=== PATIENT | female | born 2000 | race Caucasian/White ===

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

== ENCOUNTER 2024-07-12 03:32 | Inpatient (IN) | payer OTHER ==
[~2024-07-12] VITALS: Ht 162.6 cm; Wt 151.4 kg
[2024-07-12] VITALS (36 sets, daily range): BP systolic 108–181; BP diastolic 55–113
[2024-07-12] MEDS ORDERED: Oxytocin 10 Unit / ML Vial IM PRN (04:05)
[2024-07-12] MEDS ORDERED: ePHEDrine Sulfate 50 MG/ML 1ML Injection XX PRN (04:05)
[2024-07-12] MEDS ORDERED: Ondansetron HCl 2 MG / ML 2ML Vial IV PRN (04:05)
[2024-07-12] MEDS ORDERED: Methylergonovine Maleate 0.2MG / ML 1ML Amp IM PRN ×2 (04:05→21:05)
[2024-07-12] MEDS ORDERED: Misoprostol 200 MCG Tab BC PRN (04:05)
[2024-07-12] MEDS ORDERED: FentaNYL 2mcg/ml-Bup 0.1% Epd 250 ML EPI PRN (04:05)
[2024-07-12] MEDS ORDERED: Carboprost Tromethamine 250 MCG/ML 1ML Amp IM PRN (04:05)
[2024-07-12] MEDS ORDERED: OXYTOCIN/RINGER'S LACTATE 500 ML IV PRN (04:05)
[2024-07-12] MEDS ORDERED: Calcium Carbonate 500 MG Tab Chew PO PRN (04:05)
[2024-07-12] MEDS ORDERED: Misoprostol 200 MCG Tab PR PRN ×2 (04:05→21:05)
[2024-07-12] MEDS ORDERED: Acetaminophen 500 MG Tab PO PRN (04:05)
[2024-07-12] MEDS ORDERED: Lactated Ringer's 1,000 ML IV PRN ×3 (04:05)
[2024-07-12] MEDS ORDERED: Tranexamic Acid 100 ML IV PRN (04:10)
[2024-07-12] MEDS ORDERED: Penicillin G Potassium 5,000,000 UNITS in NS 250 ML IV ONE (04:25)
[2024-07-12 04:43] LABS: BASOPHILS ABSOLUTE AUTO 0.01 K/mm3 (0.00-0.23); BASOPHILS PERCENT AUTO 0 % (0-2); EOSINOPHILS ABSOLUTE AUTO 0.04 K/mm3 (0.00-0.68); EOSINOPHILS PERCENT AUTO 1 % (0-6); Hematocrit 35.5 % (33.0-51.0); IMMATURE GRAN ABSOLUTE AUTO 0.11 K/mm3 (0.00-0.10); IMMATURE GRAN PERCENT AUTO 1 % (0-1); LYMPHOCYTES ABSOLUTE AUTO 1.04 K/mm3 (0.84-5.20); LYMPHOCYTES PERCENT AUTO 13 % (21-46); MONOCYTES ABSOLUTE AUTO 0.56 K/mm3 (0.16-1.47); MONOCYTES PERCENT AUTO 7 % (4-13); Mean Corpuscular HGB 26.5 pg (26.0-34.0); Mean Corpuscular HGB Conc 33.8 g/dL (31.5-36.5); Mean Corpuscular Volume 79 fL (80-100); Mean Platelet Volume 11.2 fL (9.1-12.4); NEUTROPHILS ABSOLUTE AUTO 6.51 K/mm3 (1.96-9.15); NEUTROPHILS PERCENT AUTO 79 % (41-73); Platelet Count 183 K/mm3 (150-400); RDW Coefficient Variation 15.3 % (11.7-14.2); RDW Standard Deviation 43.5 fL (35.1-46.3); Red Blood Cell Count 4.52 M/mm3 (3.80-5.20); White Blood Cell Count 8.27 K/mm3 (4.00-11.30)
[2024-07-12] MEDS ORDERED: FentaNYL Citrate 50 MCG/ML 2 ML Injection IV PRN (05:30)
[2024-07-12] MEDS ORDERED: Penicillin G Potassium 2,500,000 UNITS in Dextrose 5% 100 ML IV SCH ×2 (09:00→10:00)
[2024-07-12] MEDS ORDERED: OXYTOCIN/RINGER'S LACTATE 500 ML IV SCH ×2 (11:10→21:00)
[2024-07-12] MEDS ORDERED: FentaNYL Citrate 50 MCG/ML 2 ML Injection ONE (17:55)
[2024-07-12] MEDS ORDERED: Witch Hazel/Glycerin PADS TOP PRN (21:00)
[2024-07-12] MEDS ORDERED: Benzocaine Topical Anesthetic Spray 60GM TOP PRN (21:00)
[2024-07-12] MEDS ORDERED: Lactated Ringer's 1,000 ML IV SCH (21:05)
[2024-07-12] MEDS ORDERED: Acetaminophen 325 MG TABLET PO PRN (21:05)
[2024-07-12] MEDS ORDERED: FLU VACC TS2024-25(6MOS UP)/PF 45 MCG/0.5 ML SYRINGE IM ONE (21:05)
[2024-07-12] MEDS ORDERED: Ibuprofen 400 MG Tab PO PRN (21:05)
[2024-07-13] VITALS (7 sets, daily range): BP systolic 119–140; BP diastolic 61–70
[2024-07-13] MEDS ORDERED: Ketorolac Tromethamine 30mg Vial IV SCH
[2024-07-13] MEDS ORDERED: Lanolin Cream TOP PRN (04:00)
[2024-07-13 06:44] LABS: BASOPHILS ABSOLUTE AUTO 0.01 K/mm3 (0.00-0.23); BASOPHILS PERCENT AUTO 0 % (0-2); EOSINOPHILS ABSOLUTE AUTO 0.04 K/mm3 (0.00-0.68); EOSINOPHILS PERCENT AUTO 0 % (0-6); IMMATURE GRAN ABSOLUTE AUTO 0.06 K/mm3 (0.00-0.10); IMMATURE GRAN PERCENT AUTO 1 % (0-1); LYMPHOCYTES ABSOLUTE AUTO 1.53 K/mm3 (0.84-5.20); LYMPHOCYTES PERCENT AUTO 14 % (21-46); MONOCYTES ABSOLUTE AUTO 0.94 K/mm3 (0.16-1.47); MONOCYTES PERCENT AUTO 9 % (4-13); Mean Corpuscular HGB Conc 34.4 g/dL (31.5-36.5); Mean Corpuscular Volume 78 fL (80-100); Mean Platelet Volume 11.1 fL (9.1-12.4); NEUTROPHILS ABSOLUTE AUTO 8.51 K/mm3 (1.96-9.15); NEUTROPHILS PERCENT AUTO 77 % (41-73); Platelet Count 151 K/mm3 (150-400); RDW Coefficient Variation 15.5 % (11.7-14.2); RDW Standard Deviation 44.1 fL (35.1-46.3); Red Blood Cell Count 4.08 M/mm3 (3.80-5.20); White Blood Cell Count 11.09 K/mm3 (4.00-11.30)
[2024-07-13] MEDS ORDERED: PRAMOXINE TOP ONE (08:05)
[2024-07-13] MEDS ORDERED: HYDROCORTISONE TOP ONE (08:05)
[2024-07-13] MEDS ORDERED: Prenatal Vit/FE Fumarate/FA 1 Tab PO SCH (09:00)
--- NOTE | 2024-07-13 09:01 | NUR ---
0800: EXPERIENCED MOM ERMELINDA NB CARE WELL. REPORTS BF GOING WELL. DENIES PAIN BUT C/O PERINEAL TENDERNESS. TORDOL GIVEN. PT OFFERED ICE PACK. DECLINED AT THIS TIME. NO OTHER COMPLAINTS OR CONCERNS.
--- NOTE | 2024-07-13 15:38 | NUR ---
D/C INSTRUCTIONS DISCUSSED AND SIGNED. ANSWERED ALL QUESTIONS AND CONCERNS. EXPERIENCED MOM ERMELINDA NB AND SELF CARE WELL. PLAN D/C HOME TONIGHT
[2024-07-13] MEDS ORDERED: PRENATAL TABLE1 EAC2 PO (15:44)
--- NOTE | 2024-07-14 02:50 | NUR ---
DISCUSSED DISCHARGE INSTRUCTIONS WITH PT AND SIGNIFICANT OTHER, QUESTIONS ABOUT DISCHARGE ADDRESSED. ANDREA ESTRELLA 2 ACCOMPANIED PT AND INFENT TO CAR ON 07/13/24 AT APPROXIMATELY 2300 FOR DISCHARGE. S/O ATTENDING.
== END 2024-07-13 22:45 | disposition home or self-care (01) | DRG 807 ==
LOC: OBS 03:32 → BC 03:34 → OBS 04:14 → BC 04:20
PROVIDERS: ADMIT Obstetrics & Gynecology
PROC: 10E0XZZ Delivery of Products of Conception, External Approach (ICD-10-PCS; principal; 2024-07-12)
PROC: 0HQ9XZZ Repair Perineum Skin, External Approach (ICD-10-PCS; 2024-07-12)
DX: O42.02 Full-term premature rupture of membranes, onset of labor within 24 hours of rupture (principal); Z37.0 Single live birth; Z3A.39 39 weeks gestation of pregnancy; O70.0 First degree perineal laceration during delivery; O99.214 Obesity complicating childbirth; E66.01 Morbid (severe) obesity due to excess calories; Z79.899 Other long term (current) drug therapy
CPT/HCPCS: 36415; 51702; 59025; 85025; 86850; 86900; 86901; 86923; 99214; A9270; J1885; J2540; J2590; J7050; J7120